=== PATIENT | male | born 1985 | race Caucasian/White ===

== ENCOUNTER 2021-12-13 21:55 | Inpatient (IN) | payer MEDICAID ==
[~2021-12-13] VITALS: Ht 185.4 cm; Wt 185.1 kg
[~2021-12-13 21:55] MED LIST: HYDR-4038 PO; ISO10 PO; LOSA50TA3 PO; METO-542 PO
[2021-12-13 22:06] VITALS: BP_SYST 147
[2021-12-13] MEDS ORDERED: ASPIRIN 325 MG TABLET (ECOTRIN) PO ONE (22:30)
[2021-12-13] MEDS ORDERED: FUROSEMIDE 100 MG/10 ML VIAL IVP ONE (22:45)
[2021-12-13] MEDS ORDERED: ONDANSETRON HCL 4 MG/2 ML VIAL IVP ONE (22:45)
[2021-12-13 22:47] LABS: BASOPHILS # (AUTO) 0.2 K/uL (0.0-0.2); BASOPHILS % (AUTO) 2.3 % (0.0-2.0); EOSINOPHILS # (AUTO) 0.1 K/uL (0.0-0.4); EOSINOPHILS % (AUTO) 1.6 % (0.0-4.0); HEMATOCRIT 34.9 % (36-54); HEMOGLOBIN 11.5 g/dL (14.0-18.0); LYMPHOCYTES # (AUTO) 1.1 K/uL (1.0-5.5); LYMPHOCYTES % (AUTO) 14.4 % (20.5-51.5); MEAN CORPUSCULAR HEMOGLOBIN 31 pg (27-31); MEAN CORPUSCULAR HGB CONC 33 % (32-36); MEAN CORPUSCULAR VOLUME 95 fL (79.0-98.0); MONOCYTES # (AUTO) 0.6 K/uL (0.0-1.0); MONOCYTES % (AUTO) 7.8 % (1.7-9.3); NEUTROPHILS # (AUTO) 5.5 K/uL (1.8-7.7); NEUTROPHILS % (AUTO) 73.9 % (40.0-70.0); PLATELET COUNT (AUTO) 180 K/uL (130-430); RED BLOOD CELL COUNT(AUTO) 3.68 MIL/uL (4.2-6.2); RED CELL DISTRIBUTION WIDTH 18.2 % (9.0-15.0); WHITE BLOOD COUNT (AUTO) 7.4 K/uL (4.8-10.8)
[2021-12-13 23:23] LABS: ANION GAP 11 (5-15); ASPARTATE AMINOTRANSFERASE 43 U/L (10-37); CALCIUM 8.3 mg/dL (8.4-11.0); CHLORIDE 104 mmol/L (98-107); CREATININE 1.91 mg/dL (0.55-1.30); GFR AFRICAN AMERICAN 52 mL/min (>90); GLUCOSE 158 mg/dL (70-99); POTASSIUM 4.9 mmol/L (3.5-5.1); SODIUM SERUM 138 mmol/L (136-145); TOTAL BILIRUBIN 0.7 mg/dL (0.0-1.0); UREA NITROGEN, BLOOD 31 mg/dL (8-21)
[2021-12-13 23:24] LABS: ALANINE AMINOTRANSFERASE 46 U/L (12-78); ALBUMIN 3.3 g/dL (3.4-4.8); ALCOHOL, BLOOD < 3 mg/dL (<10); LIPASE 92 U/L (73-393)
[2021-12-14] MEDS ORDERED: LORazepam 2 MG/ML VIAL ONE (01:09)
[2021-12-14] MEDS ORDERED: HALOPERIDOL LACTATE 5 MG/ML VIAL ONE (01:10)
[2021-12-14 01:58] LABS: BASOPHILS # (AUTO) 0.3 K/uL (0.0-0.2); BASOPHILS % (AUTO) 3.6 % (0.0-2.0); EOSINOPHILS # (AUTO) 0.1 K/uL (0.0-0.4); EOSINOPHILS % (AUTO) 1.6 % (0.0-4.0); HEMATOCRIT 36.8 % (36-54); LYMPHOCYTES # (AUTO) 1.2 K/uL (1.0-5.5); LYMPHOCYTES % (AUTO) 13.3 % (20.5-51.5); MEAN CORPUSCULAR HEMOGLOBIN 30 pg (27-31); MEAN CORPUSCULAR HGB CONC 33 % (32-36); MEAN CORPUSCULAR VOLUME 93 fL (79.0-98.0); MONOCYTES # (AUTO) 0.9 K/uL (0.0-1.0); MONOCYTES % (AUTO) 9.6 % (1.7-9.3); NEUTROPHILS # (AUTO) 6.6 K/uL (1.8-7.7); NEUTROPHILS % (AUTO) 71.9 % (40.0-70.0); PLATELET COUNT (AUTO) 197 K/uL (130-430); RED BLOOD CELL COUNT(AUTO) 3.94 MIL/uL (4.2-6.2); RED CELL DISTRIBUTION WIDTH 18.8 % (9.0-15.0); WHITE BLOOD COUNT (AUTO) 9.2 K/uL (4.8-10.8)
[2021-12-14 02:15] LABS: CALCIUM 8.9 mg/dL (8.4-11.0); CREATININE 1.86 mg/dL (0.55-1.30); POTASSIUM 4.9 mmol/L (3.5-5.1)
[2021-12-14 02:21] LABS: ALBUMIN 3.7 g/dL (3.4-4.8); TOTAL BILIRUBIN 0.8 mg/dL (0.0-1.0)
[2021-12-14 02:32] LABS: BILIRUBIN,URINE NEGATIVE (NEGATIVE); BLOOD, URINE NEGATIVE (NEGATIVE); CLARITY/URINE CLEAR (CLEAR); COLOR,URINE YELLOW (YELLOW); GLUCOSE,URINE NEGATIVE (NEGATIVE); KETONES,URINE NEGATIVE (NEGATIVE); LEUKOCYTE ESTERASE ,URINE NEGATIVE (NEGATIVE); NITRITE, URINE NEGATIVE (NEGATIVE); PROTEIN URINE NEGATIVE (NEGATIVE); UROBILINOGEN,URINE 0.2 (0.2-1.0)
[2021-12-14 02:44] LABS: METHAMPHETAMINES SCREEN,URINE POSITIVE (NEG <=500)
[2021-12-14 02:45] LABS: BARBITURATE, URINE NEGATIVE (NEG <=200); BENZODIAZEPINE, URINE NEGATIVE (NEG <=150); CANNABINOID, URINE NEGATIVE (NEG <=50); COCAINE, URINE NEGATIVE (NEG <=150); OPIATE, URINE NEGATIVE (NEG <=100); PHENCYCLIDINE SCREEN,URINE NEGATIVE (NEG <=25); UR TRICYCLIC ANTIDEPRESSANTS NEGATIVE (NEG <=300); URINE AMPHETAMINE POSITIVE (NEG <=500); URINE METHADONE NEGATIVE (NEG <=200); URINE OXYCODONE SCREEN NEGATIVE (NEG <=100); URINE PROPOXYPHENE SCREEN NEGATIVE (NEG <=300)
[2021-12-14 03:05] VITALS: BP_SYST 137
[2021-12-14] MEDS: FUROSEMIDE 40 MG/4 ML VIAL IVP SCH ×2 (08:50→21:02)
[2021-12-14] MEDS: hydrALAZINE HCL 25 MG TABLET PO SCH ×2 (08:50→21:01)
[2021-12-14] MEDS: LOSARTAN POTASSIUM 50 MG TABLET (COZAAR) PO SCH (08:51)
[2021-12-14] MEDS: METOPROLOL SUCCINATE 50 MG TAB.SR.24H (TOPROL XL) PO SCH (08:51)
[2021-12-14] MEDS ORDERED: ISOSORBIDE DINITRATE 10 MG TABLET (ISORDIL) PO SCH (09:00)
[2021-12-14 09:42] LABS: BASOPHILS % (AUTO) 0.3 % (0.0-2.0); EOSINOPHILS # (AUTO) 0.2 K/uL (0.0-0.4); EOSINOPHILS % (AUTO) 1.7 % (0.0-4.0); HEMATOCRIT 35.6 % (36-54); HEMOGLOBIN 11.8 g/dL (14.0-18.0); LYMPHOCYTES # (AUTO) 1.5 K/uL (1.0-5.5); LYMPHOCYTES % (AUTO) 15.9 % (20.5-51.5); MEAN CORPUSCULAR HEMOGLOBIN 31 pg (27-31); MEAN CORPUSCULAR HGB CONC 33 % (32-36); MEAN CORPUSCULAR VOLUME 94 fL (79.0-98.0); MONOCYTES # (AUTO) 0.7 K/uL (0.0-1.0); MONOCYTES % (AUTO) 7.2 % (1.7-9.3); NEUTROPHILS # (AUTO) 6.9 K/uL (1.8-7.7); NEUTROPHILS % (AUTO) 74.9 % (40.0-70.0); PLATELET COUNT (AUTO) 196 K/uL (130-430); RED BLOOD CELL COUNT(AUTO) 3.78 MIL/uL (4.2-6.2); RED CELL DISTRIBUTION WIDTH 18.9 % (9.0-15.0); WHITE BLOOD COUNT (AUTO) 9.2 K/uL (4.8-10.8)
[2021-12-14 10:04] LABS: ALBUMIN 3.5 g/dL (3.4-4.8); CALCIUM 8.8 mg/dL (8.4-11.0); CREATININE 1.76 mg/dL (0.55-1.30); POTASSIUM 4.2 mmol/L (3.5-5.1); TOTAL BILIRUBIN 0.9 mg/dL (0.0-1.0)
[2021-12-14] MEDS: ISOSORBIDE DINITRATE 10 MG TABLET (ISORDIL) PO SCH ×2 (10:54→21:39)
[2021-12-14 20:56] VITALS: BP_SYST 145
[2021-12-14] MEDS ORDERED: ISOSORBIDE DINITRATE 10 MG TABLET (ISORDIL) ONE (21:37)
[2021-12-15 00:15] VITALS: BP_SYST 122
[2021-12-15 07:01] LABS: ALBUMIN 3.3 g/dL (3.4-4.8); CALCIUM 8.8 mg/dL (8.4-11.0); CREATININE 1.44 mg/dL (0.55-1.30); TOTAL BILIRUBIN 0.9 mg/dL (0.0-1.0)
[2021-12-15 07:15] LABS: BASOPHILS % (AUTO) 0.4 % (0.0-2.0); EOSINOPHILS # (AUTO) 0.2 K/uL (0.0-0.4); EOSINOPHILS % (AUTO) 2.6 % (0.0-4.0); HEMATOCRIT 35.6 % (36-54); HEMOGLOBIN 11.9 g/dL (14.0-18.0); LYMPHOCYTES # (AUTO) 1.4 K/uL (1.0-5.5); LYMPHOCYTES % (AUTO) 19.5 % (20.5-51.5); MEAN CORPUSCULAR HEMOGLOBIN 31 pg (27-31); MEAN CORPUSCULAR HGB CONC 33 % (32-36); MEAN CORPUSCULAR VOLUME 94 fL (79.0-98.0); MONOCYTES # (AUTO) 0.6 K/uL (0.0-1.0); MONOCYTES % (AUTO) 8.4 % (1.7-9.3); NEUTROPHILS % (AUTO) 69.1 % (40.0-70.0); PLATELET COUNT (AUTO) 207 K/uL (130-430); RED CELL DISTRIBUTION WIDTH 18.6 % (9.0-15.0); WHITE BLOOD COUNT (AUTO) 7.3 K/uL (4.8-10.8)
[2021-12-15 08:26] LABS: THYROID STIMULATING HORMONE 0.96 uIu/mL (0.36-3.74)
[2021-12-15] MEDS: FUROSEMIDE 40 MG/4 ML VIAL IVP SCH ×2 (08:40→21:23)
[2021-12-15] MEDS: METOPROLOL SUCCINATE 50 MG TAB.SR.24H (TOPROL XL) PO SCH (08:41)
[2021-12-15] MEDS: hydrALAZINE HCL 25 MG TABLET PO SCH ×2 (08:42→21:23)
[2021-12-15] MEDS: LOSARTAN POTASSIUM 50 MG TABLET (COZAAR) PO SCH (08:42)
[2021-12-15] MEDS: ISOSORBIDE DINITRATE 10 MG TABLET (ISORDIL) PO SCH ×2 (09:20→21:22)
[2021-12-15 12:45] VITALS: BP_SYST 110
[2021-12-15 17:05] VITALS: BP_SYST 141
[2021-12-15 17:36] LABS: CALCIUM 9.1 mg/dL (8.4-11.0); CREATININE 1.32 mg/dL (0.55-1.30); POTASSIUM 4.1 mmol/L (3.5-5.1)
[2021-12-15 21:00] VITALS: BP_SYST 136
[2021-12-16 00:56] VITALS: BP_SYST 124
[2021-12-16 07:54] VITALS: BP_SYST 148
[2021-12-16] MEDS: LOSARTAN POTASSIUM 50 MG TABLET (COZAAR) PO SCH (08:53)
[2021-12-16] MEDS: ISOSORBIDE DINITRATE 10 MG TABLET (ISORDIL) PO SCH (08:53)
[2021-12-16] MEDS: hydrALAZINE HCL 25 MG TABLET PO SCH (08:53)
[2021-12-16] MEDS: FUROSEMIDE 40 MG/4 ML VIAL IVP SCH (08:54)
[2021-12-16] MEDS ORDERED: METOPROLOL SUCCINATE 50 MG TAB.SR.24H (TOPROL XL) PO SCH (09:00)
[2021-12-16 09:15] LABS: CALCIUM 8.8 mg/dL (8.4-11.0); CREATININE 1.24 mg/dL (0.55-1.30)
[2021-12-16 12:14] VITALS: BP_SYST 113
[2021-12-16 16:08] VITALS: BP_SYST 116
[2021-12-16 20:00] VITALS: BP_SYST 128
[2021-12-16 20:20] VITALS: BP_SYST 118
[2021-12-16] MEDS ORDERED: hydrALAZINE HCL 25 MG TABLET PO SCH (21:00)
== END 2021-12-16 20:45 | disposition home or self-care (01) | DRG 194 ==
LOC: SED 21:55 → STU 12-14 02:02
PROVIDERS: ADMIT Internal Medicine; ATTEND Internal Medicine
DX: I13.0 Hypertensive heart and chronic kidney disease with heart failure and stage 1 through stage 4 chronic kidney disease, or unspecified chronic kidney disease (principal); N17.0 Acute kidney failure with tubular necrosis; R18.8 Other ascites; I42.0 Dilated cardiomyopathy; I50.43 Acute on chronic combined systolic (congestive) and diastolic (congestive) heart failure; Z68.43 Body mass index [BMI] 50.0-59.9, adult; E66.01 Morbid (severe) obesity due to excess calories; Z20.822 Contact with and (suspected) exposure to COVID-19; G47.33 Obstructive sleep apnea (adult) (pediatric); N18.9 Chronic kidney disease, unspecified; Z63.4 Disappearance and death of family member; Z79.899 Other long term (current) drug therapy; Z87.891 Personal history of nicotine dependence; Z56.0 Unemployment, unspecified; Z91.018 Allergy to other foods; Z80.8 Family history of malignant neoplasm of other organs or systems
CPT/HCPCS: 36415; 71045; 71250-TC; 76376; 80048; 80053; 80307; 81003; 83690; 83880; 84443; 84484; 85025; 93005; 96374; 96375; 99285; G0378; G0482; J1630; J1940; J2060; J2405